=== PATIENT | male | born 1945 | race Caucasian/White ===

== ENCOUNTER 2016-11-07 10:03 | Day surgery (SDC) | payer OTHER, MEDICARE ==
[~2016-11-07] VITALS: Ht 177.8 cm; Wt 93.0 kg
--- NOTE | 2016-12-03 11:26 | OR ---
ADMIT: 11/07/2016 RM/LOC: [facility] MR#: [id number] [address] [id number] [address] [employer] [address] [address] Operative/Delivery Room Report SEX: M AGE: 71 : 1945 SURGERY DATE: 11/07/2016 SURGEON: Chapin Buck MD PREOPERATIVE DIAGNOSES: 1. Chronic right carpal tunnel syndrome. 2. Chronic right cubital tunnel syndrome. POSTOPERATIVE DIAGNOSES: 1. Chronic right carpal tunnel syndrome. 2. Chronic right cubital tunnel syndrome. OPERATIONS PERFORMED: 1. Right external ulnar neurolysis at the cubital tunnel with anterior subcutaneous transposition of the ulnar nerve. 2. ({{b}}Completely separate operative site and procedure{{b}}) Endoscopic right carpal tunnel release. 3. Provision of TheraBall and set of XXXL Heelbo pads. DIETARY SERVER: Any Morgan CST. ANESTHESIA: General LMA by Farzana Fitzgerald CRNA, supplemented by 1% lidocaine intracutaneous plain at wrist and 0.25% Marcaine with epinephrine intracutaneous local at elbow by Dr. Buck. FINDINGS: Carpal tunnel was moderately tight. There was no synovial hyperplasia. The ulnar nerve had a compressed appearance from the cubital tunnel level into the forearm. It was relatively tightly bound in the retrocondylar groove as it entered into the FCU. After anteriorly transposing the nerve, it was not being kinked. Nerve pull was fully decompressed for 6-8 cm distal, 6-8 cm proximal to the medial epicondyle. The incision used at this time was at least 2-3 times what we normally use because I wanted to make sure we had adequate exposure to prevent bleeding and the need for cautery and any problem that might occur with his pacer defibrillator. PROCEDURE IN DETAIL: The patient was given his general anesthetic, the right upper extremity was sterilely prepped and draped in the usual fashion. After Esmarch bandage exsanguination, a well-padded tourniquet in the upper arm was inflated to 250 mmHg. A routine 2-portal ECTR was then performed under 3.5 loupe magnification, an insertion portal was made 1 cm proximal and 1 cm radial to the pisiform. The antebrachial fascia was incised transversely in line with the skin incision. The ulnar neurovascular bundle and the median nerve were protected but not retracted. The blabfeed blunt ECTR trocar cannula assembly was then inserted just beneath, i.e., posterior to, the deep antebrachial fascia and transverse carpal ligament and into the carpal tunnel in line with the 3rd web space. With the wrist maximally hyperextended over a bump and simultaneously palmarly retracting the palmar skin and contents, the ADMIT: 11/07/2016 RM/LOC: [facility] MR#: [id number] [address] [place] [id number] [address] [address] [place] [address] Operative/Delivery Room Report SEX: M AGE: 71 : 1945 trocar tip was allowed to exit through a stab wound made just proximal to the superficial palmar arch (Reinoso's line). The ECTR trocar cannula assembly was allowed to exit into the palm. The trocar was removed. The endoscope was inserted from proximal to distal and the undersurface of the transverse carpal ligament was visualized and probed. The blunt ECTR rasp was then used to remove synovium from the undersurface of the transverse carpal ligament. With the transverse fibers fully visualized and tendons and neurovascular structures completely out of the field of view, using the [employer] reverse cutting knife, the transverse carpal ligament was completely divided. A second pass was made with the [employer] reverse cutting knife, releasing the palmar aponeurosis. Completion of the division was confirmed by noting the separation of the ligament medially and laterally. At completion of the release, the obturator cannula assembly was withdrawn carefully, and toggled from side to side to fully separate the divided transverse carpal ligament. At completion of the procedure, the wounds were closed with Suture-Strips and Mastisol. A sterile bulky dressing was then applied, and the tourniquet was released. Upon completion of the ECTR, attention was then given to the elbow. A 6-8 cm curvilinear incision was made just behind the medial epicondyle, under 4.5 loupe magnification with LED headlight illumination careful blunt dissection was carried down to the flexor pronator fascia, but however getting this much exposure to this point a large medial antebrachial cutaneous nerve branch was identified in the subcu, carefully dissected, and retracted to prevent damage to same; it was directly in the operative path. The arcuate ligament was released, exposed the ulnar nerve which then tracked into the flexor carpi ulnaris by releasing the overlying fascia. The nerve was then tracked proximally up the upper arm, released in the deep fascia around the ulnar nerve. The medial intermuscular septum was released, and then the flexor pronator fascia was elevated off the muscle for about 2 cm just medial epicondyle and then rotated as a flap. The nerve was anteriorly transposed to the medial epicondyle and the flap and fascia was secured with overlying subcu tissue with interrupted 2-0 Vicryl sutures. The elbow was flexed and extended to make sure that the nerve was not being kinked. Because there was small of bleeding about the distal portion of the incision, I could not get complete ADMIT: 11/07/2016 RM/LOC: [facility] MR#: [id number] [address] [place] [id number] [address] [address] [facility] [address] [address] Operative/Delivery Room Report SEX: M AGE: 71 : 1945 hemostasis with just a bipolar cautery, so I placed a small piece of Surgicel. The skin was closed with interrupted 2-0 Vicryl sutures subcutaneously followed by a running intracuticular 4-0 Vicryl, Suture Strips, and then a [place] dressing was applied over this. A sterile bulky dressing was applied to the wrist, and second one to the elbow. Tourniquet was let down at 50 minutes. The patient awakened, extubated, and was taken recovery in stable condition. There was blood loss of about 5 mL. No complications. No specimens pathology. Chapin Buck MD/ thania JOB #: [id number] CC: Chapin Buck, Attending Physician Reggie Vicente, Family Physician MD Reggie Mcnamara
--- NOTE | 2016-12-03 11:26 | HP ---
ADMIT: 11/07/2016 RM/LOC: [facility] MR#: [id number] [address] [address] [address] [address] [employer] [address] [address] Pre-OP History and Physical SEX: M AGE: 71 : 1945 DATE OF SERVICE: 11/07/2016 HISTORY OF PRESENT ILLNESS: Adrian is a medically stable but healthy 71-year- old with severe coronary disease, on multiple medications for same. He has chronic bilateral carpal and cubital tunnel syndromes that manifest his pain and feeling of weakness in the absence of dysesthesias. He has been unsuccessful in getting rid of this with elbow extension splinting and he has agreed to proceed with right ECTR and right ulnar decompression and cubital tunnel release. Because he has a pacer and defibrillator and we don't want to upset the cardiac situation I have discussed with him rather generous incision, bipolar electrocautery if necessary to provide hemostasis and prevent hematoma for which he would be a greater risk without this technique. He appears to understand and wants to proceed. He has been cleared for surgery by his office chair assembler, Dr. Clemons. ADDENDUM TO PHYSICAL EXAMINATION: HEENT: Notable for intact extraocular motion. Normal oropharynx and dentition. NECK: No jugular venous distention. CHEST: Clear to auscultation. HEART: S1 and S2 distant, no murmur. BREASTS: Deferred. ABDOMEN: Deferred. RECTAL: Deferred. GENITOURINARY: Deferred._ VASCULARITY/SKIN: Grossly normal. MUSCULOSKELETAL: No intrinsic or extrinsic muscle atrophy. IMPRESSION: Chronic bilateral carpal and cubital tunnel syndrome. PLAN: Outpatient right ECTR plus right ulnar decompression today, followed at a later date by left ECTR and left ulnar decompression and left wrist denervation. Chapin Buck MD/ thania JOB #: [id number] CC: Chapin Buck, Attending Physician Reggie Vicente D.O., Family Physician
== END 2016-11-07 16:12 | disposition home or self-care (01) ==
LOC: SSS 10:03
PROC: 01N40ZZ Release Ulnar Nerve, Open Approach (ICD-10-PCS; principal; 2016-11-07)
PROC: 01N54ZZ Release Median Nerve, Percutaneous Endoscopic Approach (ICD-10-PCS; principal; 2016-11-07)
DX: G56.01 Carpal tunnel syndrome, right upper limb (principal); G56.21 Lesion of ulnar nerve, right upper limb; G47.30 Sleep apnea, unspecified; I25.2 Old myocardial infarction; M19.90 Unspecified osteoarthritis, unspecified site; Z88.8 Allergy status to other drugs, medicaments and biological substances; Z79.899 Other long term (current) drug therapy; Z95.1 Presence of aortocoronary bypass graft; Z95.0 Presence of cardiac pacemaker